=== PATIENT | female | born 1960 ===

== ENCOUNTER 2020-04-06 11:07 | Outpatient (CLI) | payer OTHER ==
--- NOTE | 2020-04-06 14:51 | XRay Report ---
CHEST 2 VIEWS INDICATION: CHEST PAIN. COMPARISON: None FINDINGS: Support devices: None. Heart: Within normal limits. Lungs/pleura: No acute air space or interstitial disease. No pneumothorax. Additional findings: None. IMPRESSION: No acute findings. Signer Name: Perez Vasquez Jr, MD Signed: 04/06/2020 2:47 PM Workstation Name: [id number]
== END 2020-04-06 11:08 | disposition home or self-care (01) ==
LOC: XRAY 11:07
PROVIDERS: ATTEND Internal Medicine
DX: J45.909 Unspecified asthma, uncomplicated (principal); R41.3 Other amnesia; R20.2 Paresthesia of skin; I10 Essential (primary) hypertension; F32.9 Major depressive disorder, single episode, unspecified; E16.2 Hypoglycemia, unspecified; M25.50 Pain in unspecified joint; I63.89 Other cerebral infarction; G62.9 Polyneuropathy, unspecified; I77.1 Stricture of artery
CPT/HCPCS: 71046